=== PATIENT | male | born 1950 | race Caucasian/White ===

== ENCOUNTER 2018-03-31 13:24 | Inpatient (IN) | payer OTHER ==
--- NOTE | 2018-03-31 14:21 | EDPHY ---
H & P Stated Complaint: cp, sob Time Seen by Provider: 03/31/18 13:48 HPI/ROS: CHIEF COMPLAINT: Shortness of breath HISTORY OF PRESENT ILLNESS: 67-year-old male presents with a 2 week history of shortness of breath. Onset shortness of breath 2 weeks ago. The shortness of breath has been gradually progressive and he now feels short of breath at rest. When climbing a flight of stairs, he needs to stop multiple times to catch his breath. He has had 2-3 episodes of associated chest discomfort, but usually only feels short of breath. No chest pain today. Today he was shoveling snow off his car, felt dizzy and short of breath. Almost passed out. No dizziness now. He was seen at [facility] just prior to arrival and sent to the emergency department to rule out pulmonary embolism. 1 month ago he traveled to [place]. No prior history of cardiopulmonary disease or VTE. REVIEW OF SYSTEMS: complete 10 point ROS reviewed and is negative except for the noted elements in the HPI - Personal History Current Tetanus/Diphtheria Vaccine: Unsure Current Tetanus Diphtheria and Acellular Pertussis (TDAP): Unsure - Medical/Surgical History Hx Asthma: Yes Hx Chronic Respiratory Disease: No Hx Diabetes: No Hx Cardiac Disease: No Hx Renal Disease: No Hx Cirrhosis: No Hx Alcoholism: No Hx HIV/AIDS: No Hx Splenectomy or Spleen Trauma: No Other PMH: HTN, hyperlipidemia, asthma, - Social History Smoking Status: Never smoked Drug Use: None Additional Social History: [place] in [place] - Physical Exam Exam: General Appearance: Alert, pleasant Eyes: Pupils equal and round, no conjunctival pallor or injection ENT, Mouth: Mucous membranes moist Neck: Normal inspection Respiratory: Lungs are clear to auscultation, no wheezing, rhonchi around Cardiovascular: Regular rate and rhythm Gastrointestinal: Abdomen is soft and nontender Neurological: A&O, nonfocal exam Skin: Warm and dry, no rash Extremities: Nontender, no pedal edema Psychiatric: Mood and affect normal Constitutional: Initial Vital Signs Temperature (C) 36.3 C 03/31/18 13:31 Heart Rate 93 03/31/18 13:31 Respiratory Rate 16 03/31/18 13:31 Blood Pressure 135/89 H 03/31/18 13:31 O2 Sat (%) 92 03/31/18 13:31 O2 Delivery Mode Nasal Cannula O2 (L/minute) 2 Allergies/Adverse Reactions: No Known Allergies Allergy (Unverified 03/31/18 13:28) Home Medications: Medication Instructions Recorded Albuterol [Proventil Inhaler HFA 1 - 2 puffs IH Q4H PRN 03/31/18 (*)] Allopurinol [Allopurinol 300 MG 300 mg PO HS 03/31/18 (RX)] Ascorbic Acid [Vitamin C 500 mg 500 mg PO DAILY 03/31/18 (*)] Budesonide/Formoterol 160/4.5 1 puffs IH BID 03/31/18 [Symbicort 160-4.5 Mcg Inh (*)] Carvedilol [Coreg (*)] 25 mg PO BIDMEAL 03/31/18 Cyanocobalamin [Vitamin B12 (*)] 1,000 mcg PO DAILY 03/31/18 Ezetimibe [Zetia 10 MG (*)] 10 mg PO HS 03/31/18 Herbals/Supplements -Info Only 1 ea PO DAILY 03/31/18 Girard-3 Fatty Acids [Fish Oil 1000 1,000 mg PO TIDMEAL 03/31/18 mg (*)] Pravastatin Sodium 20 mg PO HS 03/31/18 Sildenafil Citrate [Viagra] 50 mg PO DAILY PRN 03/31/18 Vitamin E Acetate [Vitamin E] 200 unit PO DAILY 03/31/18 amLODIPine BESYLATE [Norvasc 5 mg 5 mg PO HS 03/31/18 (*)] Medical Decision Making - Diagnostics EKG Interpretation: EKG interpreted by me reveals normal sinus rhythm, rate 90, LAD, low voltage in the limb leads. Interpretation: Borderline EKG Imaging Results: Imaging Impressions Chest X-Ray 03/31/18 14:32 Impression: No acute cardiopulmonary process. Extremity Venous Study 03/31/18 14:32 Impression: 1. Thrombus within the right popliteal vein extending into the gastrocnemius muscular branch and peroneal veins compatible with DVT. 2. No evidence of DVT on the left. Findings discussed with Niki Carver M.D. at 15:32 hour, 03/31/2018. Chest x-ray: Pulmonary edema Imaging: I viewed and interpreted images myself ED Course/Re-evaluation: This patient presents with gradually increasing shortness of breath. Stat EKG reveals no evidence of ischemia or dysrhythmia. Concern for acute pulmonary embolism. I-STAT creatinine 2.0, CTA of the chest contraindicated. D-dimer is greater than 7. Bilateral lower extremity ultrasound ordered and reveals a right lower extremity DVT. Lovenox 90 mg subcu given. The patient will be able to undergo a V/Q scan tomorrow. BNP is also quite elevated at 7000 and chest x-ray consistent with pulmonary edema. Dyspnea possibly secondary to pulmonary embolism combined with CHF, will need further testing including V/Q scan and echocardiogram as an inpatient. The hospitalist service was consulted for admission. Pt stable throughout his ED course. Differential Diagnosis: Differential diagnosis includes though it is not limited to pneumonia, pneumothorax, pulmonary embolism, aortic dissection, pericarditis, acute coronary syndrome. - Data Points Laboratory Results: Laboratory Results 03/31/18 14:20 03/31/18 14:00 03/31/18 03/31/18 03/31/18 14:34 14:20 14:20 WBC REJ RBC TNP Hgb TNP POC Hgb 17.7 gm/dL H gm/dL (13.7-17.5) Hct TNP POC Hct 52 % H % (40-51) MCV TNP MCH TNP MCHC TNP RDW TNP Plt Count TNP MPV TNP Neut % (Auto) TNP Lymph % (Auto) TNP Reeves % (Auto) TNP Eos % (Auto) TNP Baso % (Auto) TNP Nucleat RBC Rel Count TNP Absolute Neuts (auto) TNP Absolute Lymphs (auto) TNP Absolute Monos (auto) TNP Absolute Eos (auto) TNP Absolute Basos (auto) TNP Absolute Nucleated RBC TNP Immature Gran % TNP Immature Gran # TNP D-Dimer 7.53 ug/mLFEU H ug/mLFEU (0.00-0.50) POC Sodium 142 mEq/L mEq/L (135-145) Sodium POC Potassium 4.2 mEq/L mEq/L (3.3-5.0) Potassium POC Chloride 111 mEq/L H mEq/L (97-110) Chloride Carbon Dioxide Anion Gap POC BUN 51 mg/dL H mg/dL (7-23) BUN Creatinine POC Creatinine 2.0 mg/dL H mg/dL (0.7-1.3) Estimated GFR Glucose POC Glucose 99 mg/dL mg/dL (70-100) Calcium POC Troponin I NT-Pro-B Natriuret Pep 03/31/18 03/31/18 14:17 14:00 WBC RBC Hgb POC Hgb Hct POC Hct MCV MCH MCHC RDW Plt Count MPV Neut % (Auto) Lymph % (Auto) Reeves % (Auto) Eos % (Auto) Baso % (Auto) Nucleat RBC Rel Count Absolute Neuts (auto) Absolute Lymphs (auto) Absolute Monos (auto) Absolute Eos (auto) Absolute Basos (auto) Absolute Nucleated RBC Immature Gran % Immature Gran # D-Dimer POC Sodium Sodium 141 mEq/L mEq/L (135-145) POC Potassium Potassium 4.5 mEq/L mEq/L (3.3-5.0) POC Chloride Chloride 108 mEq/L mEq/L (97-110) Carbon Dioxide 19 mEq/l L mEq/l (22-31) Anion Gap 14 mEq/L mEq/L (6-14) POC BUN BUN 41 mg/dL H mg/dL (7-23) Creatinine 2.0 mg/dL H mg/dL (0.7-1.3) POC Creatinine Estimated GFR 34 Glucose 98 mg/dL mg/dL (70-100) POC Glucose Calcium 9.4 mg/dL mg/dL (8.5-10.4) POC Troponin I 0.04 ng/mL ng/mL (0.00-0.08) NT-Pro-B Natriuret Pep 7020 pg/mL H pg/mL (0-125) Medications Given: Sodium Chloride (Ns) 1,000 mls @ 100 mls/hr IV CONT SILVIO Stop: 09/27/18 18:14 Last Admin: 03/31/18 18:25 Dose: 1,000 mls Discontinued Medications Enoxaparin Sodium (Lovenox) 90 mg SC EDNOW ONE Stop: 03/31/18 15:46 Last Admin: 03/31/18 16:28 Dose: 90 mg Point of Care Test Results: Chemistry 03/31/18 03/31/18 14:34 14:17 POC Sodium 142 mEq/L mEq/L (135-145) POC Potassium 4.2 mEq/L mEq/L (3.3-5.0) POC Chloride 111 mEq/L H mEq/L (97-110) POC BUN 51 mg/dL H mg/dL (7-23) POC Creatinine 2.0 mg/dL H mg/dL (0.7-1.3) POC Glucose 99 mg/dL mg/dL (70-100) POC Troponin I 0.04 ng/mL ng/mL (0.00-0.08) ISTAT H&H 03/31/18 14:34 POC Hgb 17.7 gm/dL H gm/dL (13.7-17.5) POC Hct 52 % H % (40-51) Departure - Departure Disposition: [facility] ([place], [place]) Inpatient Acute Clinical Impression: Congestive heart failure Qualifiers: Heart failure type: systolic Heart failure chronicity: acute Qualified Code(s) : I50.21 - Acute systolic (congestive) heart failure DVT (deep venous thrombosis) Qualifiers: DVT location: lower extremity Affected thrombotic vein of extremity: popliteal Chronicity: acute Laterality: right Qualified Code(s): I82.431 - Acute embolism and thrombosis of right popliteal vein Condition: Fair
[2018-03-31] MEDS ORDERED: ENOXAPARIN 80 MG/0.8 ML SYR SC ONE (15:29)
[2018-03-31] MEDS ORDERED: ENOXAPARIN 100 MG/ML SYR SC ONE (15:45)
[2018-03-31] MEDS ORDERED: PROMETHAZINE HCL 25 MG/ML INJ IVP PRN (17:59)
[2018-03-31] MEDS ORDERED: ONDANSETRON DISINTEGRATING 4 MG TAB PO PRN (17:59)
[2018-03-31] MEDS ORDERED: ONDANSETRON 4 MG/2 ML VIAL IVP PRN (17:59)
[2018-03-31] MEDS ORDERED: ACETAMINOPHEN 325 MG TAB PO PRN (17:59)
[2018-03-31] MEDS ORDERED: ALBUTEROL 3 ML DEYVIAL IH PRN (17:59)
[2018-03-31] MEDS ORDERED: oxyCODONE IR 5 MG TAB PO PRN (17:59)
[2018-03-31] MEDS ORDERED: NS 1,000 ML IV SCH (18:15)
[2018-03-31] MEDS ORDERED: ALBUTEROL 60 PUFFS/8 GM MDI IH PRN (20:12)
--- NOTE | 2018-03-31 20:18 | PDGENHP ---
History and Physical - Chief Complaint sob - History of Present Illness 67 yo M with PMH of CKD, HTN, HLD and asthma presenting from [facility] with complaints of 2 weeks of new onset sob, exertional dyspnea and limited ability to exert himself. He notes prior to this he was able to climb stairs and hike without stopping and now he cannot climb a flight of stairs without needing to stop and it takes him several minutes to do so. He has had a several episodes of chest pain over the last two weeks, but he describes them as brief twinges of pain and they can be either substernal, over the left chest or occasionally in the back on the left. He notes the pain seems to have an exertional component , but he does not notice that it is associated with taking deep breaths. He has had some episodes of near syncope that have occurred over the last couple of weeks, and he has had intermittent light headedness as well. He does not think he has had any changes in his weight. He denies fevers or chills, denies cough or sputum production. He does have a hx of asthma but notes these sxs are not like his asthma sxs. He has not had pain or swelling in his legs that he has noticed. He did fly out of state prior to these sxs beginning and was in a plane for 4 hours. History Information - Allergies/Home Medication List Allergies/Adverse Reactions: No Known Allergies Allergy (Unverified 03/31/18 13:28) Home Medications: Albuterol [Proventil Inhaler HFA (*)] 1 - 2 puffs IH Q4H PRN 03/31/18 [Last Taken Unknown] Allopurinol [Allopurinol 300 MG (RX)] 300 mg PO HS 03/31/18 [Last Taken 03/30/18 ] Ascorbic Acid [Vitamin C 500 mg (*)] 500 mg PO DAILY 03/31/18 [Last Taken ] Budesonide/Formoterol 160/4.5 [Symbicort 160-4.5 Mcg Inh (*)] 1 puffs IH BID [Last Taken 03/30/18] Carvedilol [Coreg (*)] 25 mg PO BIDMEAL 03/31/18 [Last Taken 03/31/18 09:00] Cyanocobalamin [Vitamin B12 (*)] 1,000 mcg PO DAILY 03/31/18 [Last Taken ] Ezetimibe [Zetia 10 MG (*)] 10 mg PO HS 03/31/18 [Last Taken 03/30/18] Herbals/Supplements -Info Only 1 ea PO DAILY 03/31/18 [Last Taken 03/31/18] Firth-3 Fatty Acids [Fish Oil 1000 mg (*)] 1,000 mg PO TIDMEAL 03/31/18 [Last Taken 03/31/18 09:00] Pravastatin Sodium 20 mg PO HS 03/31/18 [Last Taken 03/30/18] Sildenafil Citrate [Viagra] 50 mg PO DAILY PRN 03/31/18 [Last Taken Unknown] Vitamin E Acetate [Vitamin E] 200 unit PO DAILY 03/31/18 [Last Taken 03/31/18] amLODIPine BESYLATE [Norvasc 5 mg (*)] 5 mg PO HS 03/31/18 [Last Taken 03/31/18] I have personally reviewed and updated: family history, medical history, social history, surgical history - Past Medical History asthma, hypertension, hyperlipidemia Additional medical history: CKD baseline creatinine around 2. gout. polyneuropathy - Surgical History Reports: hernia repair Additional surgical history: cataract. wrist surgery - Family History Additional family history: father of liver disease. mother young of MS - Social History Smoking Status: Never smoked Alcohol Use: Occasionally Drug Use: None Additional social history: lives alone, [place], , 1 daughter Review of Systems Review of Systems: ROS: 10pt was reviewed & negative except for what was stated in HPI & below Physical Exam Physical Exam: Temp Pulse Resp BP Pulse Ox 36.6 C 86 20 147/85 H 99 03/31/18 17:42 03/31/18 17:42 03/31/18 17:42 03/31/18 17:42 03/31/18 17:42 O2 (L/minute) 2 Constitutional: no apparent distress, appears nourished Eyes: PERRL, anicteric sclera Ears, Nose, Mouth, Throat: moist mucous membranes, hearing normal, ears appear normal Cardiovascular: regular rate and rhythym, no murmur, rub, or gallop, No edema Respiratory: no respiratory distress, no rales or rhonchi, clear to auscultation Gastrointestinal: normoactive bowel sounds, soft, non-tender abdomen, no palpable masses Genitourinary: no bladder tenderness Skin: warm, normal color Musculoskeletal: no muscle tenderness, No asymmetric calves Neurologic: AAOx3, CN II-XII Intact Psychiatric: interacting appropriately, not anxious, not encephalopathic Lab Data & Imaging Review 03/31/18 16:02 03/31/18 14:00 WBC 5.87 10^3/uL (3.80-9.50) 03/31/18 16:02 RBC 4.86 10^6/uL (4.40-6.38) 03/31/18 16:02 Hgb 15.6 g/dL (13.7-17.5) 03/31/18 16:02 POC Hgb 17.7 gm/dL (13.7-17.5) H 03/31/18 14:34 Hct 47.2 % (40.0-51.0) 03/31/18 16:02 POC Hct 52 % (40-51) H 03/31/18 14:34 MCV 97.1 fL (81.5-99.8) 03/31/18 16:02 MCH 32.1 pg (27.9-34.1) 03/31/18 16:02 MCHC 33.1 g/dL (32.4-36.7) 03/31/18 16:02 RDW 13.5 % (11.5-15.2) 03/31/18 16:02 Plt Count 143 10^3/uL (150-400) L 03/31/18 16:02 MPV TNP 03/31/18 14:20 Neut % (Auto) TNP 03/31/18 14:20 Lymph % (Auto) TNP 03/31/18 14:20 Glacier % (Auto) TNP 03/31/18 14:20 Eos % (Auto) TNP 03/31/18 14:20 Baso % (Auto) TNP 03/31/18 14:20 Nucleat RBC Rel Count TNP 03/31/18 14:20 Absolute Neuts (auto) TNP 03/31/18 14:20 Absolute Lymphs (auto) TNP 03/31/18 14:20 Absolute Monos (auto) TNP 03/31/18 14:20 Absolute Eos (auto) TNP 03/31/18 14:20 Absolute Basos (auto) TNP 03/31/18 14:20 Absolute Nucleated RBC TNP 03/31/18 14:20 Immature Gran % TNP 03/31/18 14:20 Immature Gran # TNP 03/31/18 14:20 D-Dimer 7.53 ug/mLFEU (0.00-0.50) H 03/31/18 14:20 POC Sodium 142 mEq/L (135-145) 03/31/18 14:34 Sodium 141 mEq/L (135-145) 03/31/18 14:00 POC Potassium 4.2 mEq/L (3.3-5.0) 03/31/18 14:34 Potassium 4.5 mEq/L (3.3-5.0) 03/31/18 14:00 POC Chloride 111 mEq/L (97-110) H 03/31/18 14:34 Chloride 108 mEq/L (97-110) 03/31/18 14:00 Carbon Dioxide 19 mEq/l (22-31) L 03/31/18 14:00 Anion Gap 14 mEq/L (6-14) 03/31/18 14:00 POC BUN 51 mg/dL (7-23) H 03/31/18 14:34 BUN 41 mg/dL (7-23) H 03/31/18 14:00 Creatinine 2.0 mg/dL (0.7-1.3) H 03/31/18 14:00 POC Creatinine 2.0 mg/dL (0.7-1.3) H 03/31/18 14:34 Estimated GFR 34 03/31/18 14:00 Glucose 98 mg/dL (70-100) 03/31/18 14:00 POC Glucose 99 mg/dL (70-100) 03/31/18 14:34 Calcium 9.4 mg/dL (8.5-10.4) 03/31/18 14:00 POC Troponin I 0.04 ng/mL (0.00-0.08) 03/31/18 14:17 Troponin I 0.036 ng/mL (0.000-0.034) H 03/31/18 18:45 NT-Pro-B Natriuret Pep 7020 pg/mL (0-125) H 03/31/18 14:00 Visualized and Interpreted Chest x-ray results: Yes Chest X-Ray results: no infiltrate Visualized and Interpreted imaging results: Yes Interpretation: Ext US: Right lower extremity DVT Visualized and Interpreted EKG results: Yes EKG Interpretation: Positive for: normal sinsus rhythm EKG additional interpertation: LAD Assessment & Plan Assessment: Congestive heart failure (Acute) DVT (deep venous thrombosis) (Acute) 67 yo M with PMH of CKD, HTN, HLD presenting with new onset SOB and GARNETT # GARNETT/SOB: with evidence of RLE DVT and concern for PE as well but given associated CP and sxs largely with exertion also concerning for angina/CHF. Patient does have underlying CKD and have held off on CTA for the time being, ordered an echocardiogram started on tx dose LMWH. Cardiology consulted, Echo read pending. If no plan for angio in am, would likely f/u with CTA as next # RLE DVT: in setting of above and again concerning for PE. With other sxs and possible need for angio, held off on CTA, will hydrate overnight, f/u on echo read and continue LMWH for now. Depending on cardiology plan, CTA versus VQ in am # CKD: at baseline, patient uncertain of etiology, IVF overnight for likely dye study in am # HTN: reasonably controlled on coreg and amlodipine # asthma: continue current inhalers as needed, no e/o acute exacerbation, lungs sound clear # observations status Patient new to my care. Old records reviewed and summarized as above. Care plan reviewed with ER doctor including plans for US/echo.
[2018-03-31] MEDS: amLODIPine BESYLATE 5 MG TAB PO SCH (20:39)
[2018-03-31] MEDS: PRAVASTATIN SODIUM 20 MG TAB PO SCH (20:39)
[2018-03-31] MEDS: ENOXAPARIN 100 MG/ML SYR SC SCH (20:39)
[2018-03-31] MEDS: EZETIMIBE 10 MG TAB PO SCH (20:39)
[2018-03-31] MEDS: ALLOPURINOL 300 MG TAB PO SCH (20:39)
--- NOTE | 2018-03-31 20:40 | CPEKG ---
Test Reason : OPEN Blood Pressure : / mmHG Vent. Rate : 090 BPM Atrial Rate : 089 BPM P-R Int : 164 ms QRS Dur : 096 ms QT Int : 389 ms P-R-T Axes : 029 -35 -25 degrees QTc Int : 476 ms Sinus rhythm Left axis deviation Low voltage, extremity leads Confirmed by Niki Carver ([id number]) on 03/31/2018 8:39:22 PM Referred By: Confirmed By:Niki Carver
[2018-03-31] MEDS ORDERED: ENOXAPARIN 80 MG/0.8 ML SYR SC SCH (21:00)
[2018-03-31] MEDS: BUDESONIDE/FORMOTEROL 160/4.5 60 PUFFS/MDI IH SCH (21:18)
[2018-04-01 04:41] LABS: PLATELET COUNT 134 10^3/uL (150-400)
--- NOTE | 2018-04-01 08:51 | ECHO ---
[email or web address] [address] [address] Main: [phone] Fax: Transthoracic Echocardiogram Name: PORTILLO KABA MR#: [id number] Study Date: 03/31/2018 Study Time: 04:04 PM Date of : 1950 Age: 67 year(s) Height: 177.8 cm (70 in.) Weight: 90.72 kg (200 lb.) BSA: 2.09 m2 Gender: Male Examination: Echo Indication: Shortness of breath Image Quality: Adequate Contrast: Requested by: Niki Carver BP: 129 mmHg/80 mmHg Heart Rate: Rhythm: Indication: Shortness of breath Procedure Staff Stock Supervisor: Luh Colon LAST Reading Physician: Popeye Rodgers MD Requesting Provider: Conclusions: Concentric LV hypertrophy. The ejection fraction is visually estimated to be 55 %. Dilated right ventricle with reduced function. Trivial mitral valve regurgitation. Mild aortic valve regurgitation is present. Moderate tricuspid regurgitation is present. Right ventricular systolic pressure measures 58mmHg. Mild pulmonic valve regurgitation is noted. Measurements: Chambers Valvular Assessment AV/MV Valvular Assessment TV/PV Normal Normal Normal Name Value Range Name Value Range Name Value Range Ao Lashae (2D): 3.3 cm (1.4 cm-2.6 AV Vmax: 0.80 m/s (1 m/s-1.7 TR Vmax: 3.65 mm/s ( - ) cm) m/s) TR PGmax: 53 mmHg ( - ) IVSd (2D): 1.8 cm (0.6 cm-1.1 AV maxP mmHg ( - ) syst. PAP: 58 mmHg ( - ) cm) AV meanP mmHg ( - ) PV Vmax: 0.40 m/s (0.6 m/s-0.9 LVDd (2D): 3.3 cm (4.2 cm-5.9 LVOT Vmax: 0.53 m/s (0.7 m/s-1.1 m/s) cm) m/s) PV PGmax: 1 mmHg ( - ) LVDs (2D): 2.3 cm (2.1 cm-4 KAREN (Vmax): 1.9 cm2 ( - ) cm) KAREN (VTI): 1.8 cm ( - ) LVPWd (2D): 1.4 cm (0.6 cm-1 MV E Vmax: 0.26 m/s ( - ) cm) MV A Vmax: 0.54 m/s ( - ) LVOTd 1.9 cm 1.9 cm mm MV E/A: 0.48 ( - ) LVEF (BP): 51 % (>=55 %) MV PHT: 0.052 s ( - ) Visual EF: 55 % MVA (PHT): 4.2 s ( - ) RVDd(2D): 3.3 cm (1.9 cm-3.8 cmmm) Continued Measurements: Patient: PORTILLO KABA Study Date: 03/31/2018 Page 1 of 2 04:04 PM Chambers Valvular Assessment AV/MV Valvular Assessment TV/PV Name Value Name Value Name Value LADs: 2.7 cm MV DecTime: 165 m/s CVP (est.): 5 mmHg LA Volume: 26 ml MV E/E' Septal: 5.70 LA Volume Index: 12.4 ml/m2 MV E/E' Lateral: 3.20 RA Area: 18.6 cm2 Additional Vessels Name Value Ao Ascendin.2 cm Inferior Vena Cava: 1.7 cm Findings: Left Ventricle: Normal size left ventricle. Concentric LV hypertrophy. Normal global systolic LV function. The ejection fraction is visually estimated to be 55 %. No regional wall motion abnormality. Unable to assess diastolic dysfunction. Right Ventricle: Dilated right ventricle with reduced function. Left Atrium: The left atrium is normal in size. Right Atrium: The right atrium is mildly dilated. Mitral Valve: The mitral valve is normal in appearance and function. Trivial mitral valve regurgitation. No mitral stenosis is present. Aortic Valve: The aortic valve is tri-leaflet. Mild aortic valve regurgitation is present. No aortic valve stenosis is present. Tricuspid Valve: The tricuspid valve is normal in appearance and function. Moderate tricuspid regurgitation is present. The pulmonary artery pressure is moderately increased. Right ventricular systolic pressure measures 58mmHg. Pulmonic Valve: The pulmonic valve is normal in appearance and function. Mild pulmonic valve regurgitation is noted. Aorta: The aorta is normal. Normal size aortic root measuring 3.3 cm. Normal size ascending aorta measuring 3.2 cm. IVC: The IVC is normal sized. Pericardium: No pericardial effusion. No pleural effusion. (No Signature Object) Patient: PORTILLO KABA Study Date: 03/31/2018 Page 2 of 2 04:04 PM [id number]
[2018-04-01] MEDS ORDERED: VITAMIN E ACETATE 200 UNIT PO SCH (09:00)
--- NOTE | 2018-04-01 09:24 | HOSPPROG ---
Hospitalist Progress Note Assessment/Plan: 67 yo M with PMH of CKD, HTN, HLD presenting with new onset SOB and GARNETT, diagnosed with DVT, suspect PE # Presumed PE: Echo showed RVSP 58 with dilated RV and decreased RV function, e/ o strain with elevated trop. With known DVT, high suspicion for PE in setting of dyspnea, tachycardia, hypoxemia -cont anticoagulation, change to eliquis 10 mg BID -will check V/Q scan, defer CTA with elevated Cr and CKD # AHRF: 2/2 above, 3-4 LPM today -will likely need home O2 # RLE DVT: possibly provoked by recent travel. -as above, anticoagulate with Eliquis # CKD: Baseline Cr ~1.9, unclear etiology, has seen nephrology in past, but doesn't connect with anyone specifically -will refer to Dr[facility] at [facility] for f/u # HTN: reasonably controlled on coreg and amlodipine # asthma: continue current inhalers as needed, no e/o acute exacerbation, lungs sound clear # dispo: change to inpt for ongoing management of presumed PE with right heart strain, hypoxemia and tachycardia Patient new to my care. Old records reviewed and summarized as above. Discussed with cards. Subjective: pt doing ok, reports ongoing SOB at rest. Denies CP. No fevers/ chills. No cough. Objective: Vital Signs Temp Pulse Resp BP Pulse Ox 36.7 C 78 18 105/79 94 04/01/18 07:46 04/01/18 07:46 04/01/18 07:46 04/01/18 07:46 04/01/18 07:46 Laboratory Results 04/01/18 03:48 04/01/18 03:48 03/31/18 04/01/18 04/02/18 05:59 05:59 05:59 Intake Total 1475 Balance 1475 - Physical Exam Constitutional: no apparent distress Eyes: PERRL Ears, Nose, Mouth, Throat: moist mucous membranes Cardiovascular: regular rate and rhythym Respiratory: no respiratory distress, clear to auscultation Gastrointestinal: normoactive bowel sounds, soft, non-tender abdomen Skin: warm Musculoskeletal: full muscle strength Neurologic: AAOx3 Psychiatric: interacting appropriately ICD10 Worksheet Patient Problems: Problems Problem Status Onset Congestive heart failure Acute DVT (deep venous thrombosis) Acute
--- NOTE | 2018-04-01 10:37 | GCON ---
CARDIOLOGY CONSULT CHIEF COMPLAINT: Shortness of breath. HISTORY OF PRESENT ILLNESS: This is a 67-year-old male with history of coronary artery disease who w as seen in our office yesterday. The patient also indicates that 3 weeks ago, he took a 4 to 5 hour flight where he did not get up out of his seat. Since that time, he has been developing shortness of breath, which has been getting worse over the last 3 weeks. He has some mild chest pain, although h e notes that the shortness of breath is much worse. Upon arrival to the emergency room, the patient had a lower extremity venous ultrasound, which showed positive DVT. Patient's echocardiogram also sh owed a normal LV function; however, the right ventricle was dilated with reduced function, and he had elevated D-dimer. Given the patient's creatinine of 2.0, no CT-A was performed, but the patient was apparently started Lovenox b.i.d.. Overnight, the patient has actually felt much better with much l ess shortness of breath today. ECG showed sinus rhythm with no acute ST changes. Blood pressure and heart rate are currently stable. PAST MEDICAL HISTORY: Significant for CKD, chronic renal insufficiency, stage 3, anemia, hypertensio n. PAST SURGICAL HISTORY: Significant for hernia surgery. HOME MEDICATIONS: Include: Allopurinol, amlodipine, carvedilol, pravastatin, ProAir, Symbicort, tra zodone, Viagra, Zetia. ALLERGIES: No known drug allergies. FAMILY HISTORY: Significant for coronary artery disease, cancer. No family history of DVTs or clott ing disorders. SOCIAL HISTORY: No smoking. Occasional alcohol use. REVIEW OF SYSTEMS: Patient currently denies any headache. No visual changes. No throat pain. No n slava pain. No nasal issues. He indicates having mild dyspnea with exertion. No chest pain currently . No back pain. No upper extremity pain. No abdominal discomfort. No lower extremity pain. No ne urologic issues. PHYSICAL EXAMINATION: VITAL SIGNS: Afebrile at 96, blood pressure 140/70, heart rate 72, respiratio n 12, sat 95% on 3 L nasal cannula. HEENT: Pupils equal and reactive to light and accommodation. E xtraocular movements intact. CARDIOVASCULAR: Regular rhythm S1, S2. LUNGS: Decreased breath sound s at the base. ABDOMEN: Soft, nontender. No guarding. EXTREMITIES: There is mild swelling of the lower extremities bilaterally. NEUROLOGIC: The patient is alert and oriented x3. LABORATORY/IMAGING: Currently shows troponin of 0.036. Echocardiogram shows normal LVEF with a dilated right ventricle with reduced function, with minimal m itral and aortic regurgitation, moderate pulmonary hypertension. ASSESSMENT/PLAN: Shortness of breath. At this time given the fact the patient has a positive D-dime r, dilated right ventricle with reduced function, as well as positive deep venous thrombosis, and giv en his clinical history, I feel the probability of pulmonary embolism is quite high. He has also imp roved dramatically on 2 doses of Lovenox. I feel that at this time rather than risking worsening his kidney function that we should empirically treat for his underlying pulmonary embolism at this point with blood thinning medication. We can transition from Lovenox to oral based therapy, i.e. Xarelto or Eliquis. Have the patient out of bed later today. If the patient can be weaned off the oxygen an d feels clinically better, anticipate discharge in the next 24 hours. No catheterization needed at t his point. We will continue to follow. /[id number]/MODL
[2018-04-01] MEDS: ASCORBIC ACID 500 MG TAB PO SCH (10:48)
[2018-04-01] MEDS: CARVEDILOL 25 MG TAB PO SCH ×2 (10:48→19:02)
[2018-04-01] MEDS: OMEGA-3 FATTY ACIDS 1,000 MG CAP PO SCH ×3 (10:48→19:02)
[2018-04-01] MEDS: CYANO/VITAMIN B12 1000 MCG TAB PO SCH (10:48)
[2018-04-01] MEDS: APIXABAN 5 MG TAB PO SCH ×2 (10:50→21:22)
[2018-04-01] MEDS: ENOXAPARIN 100 MG/ML SYR SC SCH (10:53)
[2018-04-01] MEDS: BUDESONIDE/FORMOTEROL 160/4.5 60 PUFFS/MDI IH SCH ×2 (11:11→21:18)
--- NOTE | 2018-04-01 13:51 | ASMTCMCOM ---
CM Note CM Note Notes: Pts case discussed in tx rounds. Pt is a 67 y/o man admitted for shortness of breath, and chest pain. Pt most likely has a blood clot and will require a new blood thinner medication. A VQ scan has been ordered. Pt may have a DVT in his right leg. Pt was a supportive daughter. Pt will most likely d/c independent when medically stable. CM available for changes. Plan: Independent Date Signed: 04/01/2018 01:50 PM Electronically Signed By:SHAMAR Rosales
--- NOTE | 2018-04-01 15:32 | PDMN ---
Medical Necessity Medical necessity: Changed to IP status as of 04/01/18 per MD and MCG [id number]; los >2 mn for ongoing management and tx of presumed PE with right heart strain, hypoxemia, and tachycardia
[2018-04-01] MEDS: amLODIPine BESYLATE 5 MG TAB PO SCH (21:21)
[2018-04-01] MEDS: ALLOPURINOL 300 MG TAB PO SCH (21:22)
[2018-04-01] MEDS: PRAVASTATIN SODIUM 20 MG TAB PO SCH (21:22)
[2018-04-01] MEDS: EZETIMIBE 10 MG TAB PO SCH (21:22)
--- NOTE | 2018-04-02 07:03 | PDCARPN ---
Cardiology Progress Note Chief Complaint: SOB Assessment/Plan: Assessment: SOB DVT most likely PE Plan: 04/02/18 07:01 Doing much better on Ac tx OOB continue current tx will follow as needed Subjective: doing better Reviewed/Discussed With: multidisciplinary team Time Spent with Patient: greater than 25 minutes Time Spent with Patient: Greater than 25 minutes spent on this patients care, greater than 50% of time spent counseling, educating, and coordinating care regarding the above mentioned plan. Objective: Vital Signs (8 Hrs) Temp Pulse Resp BP Pulse Ox 04/02/18 03:41 36.8 C 78 15 100/74 98 04/01/18 23:33 36.4 C 72 19 108/77 97 Intake/Output (24 Hrs) 04/01/18 04/02/18 04/03/18 05:59 05:59 05:59 Intake Total 620 Balance 620 Intake: Oral (ml) 620 Other: Weight 89.5 kg Number of Voids Toilet 2 Result Diagrams: 04/01/18 03:48 04/02/18 03:42 - Physical Exam Constitutional: healthy appearing Eyes: PERRL Ears, Nose, Mouth, Throat: moist mucous membranes Cardiovascular: regular rate and rhythm Peripheral Pulses: 1+: femoral (R), femoral (L) Respiratory: clear to auscultate bilat Gastrointestinal: normoactive bowel sounds Genitourinary: no suprapubic tenderness Skin: no rashes Musculoskeletal: no muscular tenderness Neurologic: AAOx3 Psychiatric: cooperative ICD10 Worksheet Patient Problems: Problems Problem Status Onset Congestive heart failure Acute DVT (deep venous thrombosis) Acute
[2018-04-02] MEDS: ASCORBIC ACID 500 MG TAB PO SCH (08:28)
[2018-04-02] MEDS: APIXABAN 5 MG TAB PO SCH (08:28)
[2018-04-02] MEDS: CARVEDILOL 25 MG TAB PO SCH (08:28)
[2018-04-02] MEDS: OMEGA-3 FATTY ACIDS 1,000 MG CAP PO SCH ×2 (08:28→12:39)
[2018-04-02] MEDS: CYANO/VITAMIN B12 1000 MCG TAB PO SCH (08:28)
[2018-04-02] MEDS: BUDESONIDE/FORMOTEROL 160/4.5 60 PUFFS/MDI IH SCH (08:29)
[2018-04-02] MEDS ORDERED: SODIUM CL NASAL 45 ML BTL EACHNARE PRN (09:16)
--- NOTE | 2018-04-02 10:16 | PDHOMEO2F ---
Home Oxygen Face to Face Home Orders: I certify that a physician or a nurse practitioner or physician's bindery assistant has had a [id number] encounter with this patient on the date of this order due to the diagnosis listed, which relates to the primary reason the patient requires home oxygen. Alternative treatments have been tried, or considered, and deemed ineffective. It is anticipated that supplemental oxygen will result in improvement with treatment. Home oxygen qualifying diagnosis: pulmonary embolism SpO2 on room air (%): 87 Frequency of home oxygen needed: with activity Home oxygen liters per minute: 2 Home oxygen delivery device: nasal cannula Concentrator: Yes E-tanks for mobility and back up: Yes If ordering portable O2, is the patient mobile in the home?: Yes I certify that, based on these findings, the home oxygen is medically necessary for this patient for the following length of time. Length of time home oxygen needed: 1 month
[2018-04-02 12:08] VITALS: BP 118/77
--- NOTE | 2018-04-02 16:30 | GDS ---
DISCHARGE DIAGNOSES: 1. Right lower extremity deep venous thrombosis. 2. Bilateral pulmonary emboli. 3. Acute hypoxemic respiratory failure secondary to above. 4. Chronic kidney disease with a baseline creatinine of 1.9. 5. Hypertension. 6. Asthma. CONSULTATION: Dr. Popeye Rodgers, Cardiology. IMAGING/PROCEDURES: 1. A lower extremity ultrasound Doppler revealed thrombus within the right popliteal vein extending into the gastrocnemius muscular branch and peroneal veins compatible with DVT. 2. Echocardiogram March 31, 2018. Echocardiogram showed concentric left ventricular hypertrophy w ith ejection fraction of 55%, dilated right ventricle with reduced RV function and right ventricular systolic pressure of 58. In addition, moderate tricuspid regurgitation was noted, as well as mild ao rtic valve regurgitation. 3. V/Q scan April 01, 2018, was positive for bilateral pulmonary emboli with multiple large segmen jamie defects in both lungs, most prominent in bilateral lung apices, but also involving bilateral lowe r lobes with multiple mismatched perfusion defects. HISTORY OF DETAILS: Please see History and Physical dated March 31, 2018. In brief, Mr. Marshall is a 67-year-old male with a history of hypertension, hyperlipidemia, and chronic kidney disease, who pre sented to the emergency department from the [facility] with new onset shortness of breath a nd exertional dyspnea. It was noted he recently flew to [place] from [place]. I noted this was a 4-hour flight. In the emergency department, a lower extremity Doppler was positive for DVT. He wa s admitted to the hospital for further management. HOSPITAL COURSE: The patient admitted to the cardiac telemetry unit. There was high suspicion for p ulmonary embolism given his dyspnea and shortness of breath in the setting of proven right lower extr emity DVT. There was also some concern for possible angina and cardiology consult was obtained. No further cardiac interventions were recommended. Given the results of his echo showed a large right v entricle with decreased RV function, as well as right heart strain noted on his EKG, he had a presume d diagnosis of pulmonary embolism. Unfortunately, due to his chronic kidney disease with elevated cr eatinine on arrival of 2.0, he was unable to go to CT pulmonary angiogram. Therefore, he was treated empirically with Lovenox. This was transitioned to Eliquis with plans for 10 mg p.o. b.i.d. for 1 w [place] and then he can decrease to 5 mg p.o. b.i.d. It is recommended he have a followup basic metaboli c panel next week to ensure stability of his kidney function, as he would need Eliquis dose adjusted should he have a reduced GFR. His creatinine on discharge is 1.6 with a GFR maintaining in the 40s. He initially required 3-4 L of oxygen, though he was able to titrate to room air, maintaining sats i n the 90s at rest prior to discharge. However, he did desat to 87% with ambulation and was thus disc harged with home oxygen to be used with activity. He should have close followup with his primary car e physician, which is planned for next week. In addition, I recommend he follow up with Dr. Devendra Toledo, Hematology. I suspect this was a provo ked event, given his recent travel. However, I did send a Factor V Leiden and antiphospholipid/cardi olipin antibody to evaluate for hypercoagulable disorders. He notes a history of clots in his nieces . In addition, he can talk with Hematology about recommendations regarding duration of anticoagulati on. I suspect he will need 3-6 months of anticoagulation and will defer this decision to outpatient hematology consultation. He is given a coupon for 1 month of Eliquis at discharge and again recommen d he have a basic metabolic panel next week with close monitoring of his kidney function while he is on anticoagulation. DISPOSITION: Patient is discharged home in stable condition. FOLLOWUP: 1. Dr. Radha Martel, Primary Care. 2. Dr. Devendra Toledo, Hematology. DISCHARGE MEDICATIONS: Please see [employer] completed outpatient medication list. New medications on discharge include Tylenol 650 mg p.o. q.4 hours p.r.n., Eliquis 10 mg p.o. b.i.d. for 11 more doses, then he can decrease to 5 mg p.o. b.i.d.; duration of therapy to be determined by outpatient hematol ogy consult. He will continue all other outpatient medications as previously prescribed. /[id number]/MODL
--- NOTE | 2018-04-04 14:55 | CPEKG ---
Test Reason : OPEN Blood Pressure : / mmHG Vent. Rate : 081 BPM Atrial Rate : 081 BPM P-R Int : 183 ms QRS Dur : 077 ms QT Int : 414 ms P-R-T Axes : 039 -25 -28 degrees QTc Int : 481 ms Sinus rhythm Borderline left axis deviation Borderline T abnormalities, diffuse leads Borderline prolonged QT interval Confirmed by Hadley Quinones ([id number]) on 04/04/2018 2:54:39 PM Referred By: Confirmed By:Hadley Quinones
== END 2018-04-02 13:05 | disposition home or self-care (01) | DRG 175 ==
LOC: F2W 17:40 → OBSVTOIN 04-01 14:05
PROVIDERS: ADMIT Internal Medicine; ATTEND Internal Medicine
DX: I26.99 Other pulmonary embolism without acute cor pulmonale (principal); J96.01 Acute respiratory failure with hypoxia; I82.431 Acute embolism and thrombosis of right popliteal vein; I12.9 Hypertensive chronic kidney disease with stage 1 through stage 4 chronic kidney disease, or unspecified chronic kidney disease; N18.3 Chronic kidney disease, stage 3 (moderate); J45.909 Unspecified asthma, uncomplicated; I08.2 Rheumatic disorders of both aortic and tricuspid valves; E78.5 Hyperlipidemia, unspecified
CPT/HCPCS: 82435-PO; 82565-PO; 82947-PO; 84132-PO; 84295-PO; 84484-PO; 84520-PO; 85014-PO; 86147-90; A9540; A9558; G0378; J1650

== ENCOUNTER → 2018-10-02 | Outpatient (CLI) | payer OTHER | LOC: FIMAGING 11:37 | PROVIDERS: ATTEND Family Medicine | DX: I25.10 Atherosclerotic heart disease of native coronary artery without angina pectoris (principal); I70.0 Atherosclerosis of aorta; R91.1 Solitary pulmonary nodule ==